=== PATIENT | female | born 1945 | race Caucasian/White ===

== ENCOUNTER 2016-10-12 17:30 | Inpatient (IN) | payer MEDICARE, BC ==
[~2016-10-12] VITALS: Ht 165.1 cm; Wt 41.7 kg
[2016-10-12] MEDS ORDERED: MULT-70 PO (17:53)
[2016-10-12] MEDS ORDERED: ATOR10TA PO (17:53)
--- NOTE | 2016-10-12 18:00 | NUR ---
DR ERICKSON AT [facility] FOR EVAL AND EXAM.
[2016-10-12 18:17] LABS: *BILIRUBIN,URIN NEGATIVE (NEGATIVE); *BLOOD, URINE NEGATIVE (NEGATIVE); *CLARITY,URINE CLEAR (CLEAR); *COLOR,URINE YELLOW (YELLOW); *KETONES,URINE NEGATIVE (NEGATIVE); *PROTEIN,URINE NEGATIVE (NEGATIVE); *UROBILINOGEN,URINE 0.2 E.U./dl (NORMAL); LEUKOCYTE ESTERASE ,URINE NEGATIVE (NEGATIVE); NITRITE, URINE NEGATIVE (NEGATIVE); UGLUCOSE NEGATIVE (NEGATIVE)
[2016-10-12 18:28] LABS: *AMPHETAMINE, URINE NEGATIVE (NEGATIVE); *BARBITURATE, URINE NEGATIVE (NEGATIVE); *CANNABINOID, URINE NEGATIVE (NEGATIVE); *COCCAINE, URINE NEGATIVE (NEGATIVE); *OPIATE, URINE NEGATIVE (NEGATIVE); *PHENCYCLIDINE SCREEN,URINE NEGATIVE (NEGATIVE)
--- NOTE | 2016-10-12 18:36 | NUR ---
[facility] COLLECTED AND SENT TO LAB. BELONGING LIST COMPLETED.
[2016-10-12 18:37] LABS: SQUAMOUS EPITHELIAL CELL,UR FEW /HPF (NONE SEEN); WBC,URINE 0-3 /HPF (0-3)
[2016-10-12 18:38] LABS: ACETAMINOPHEN 2.6 ug/mL (10-30)
[2016-10-12 18:43] LABS: ETHANOL < 3 MG/DL (0-0)
--- NOTE | 2016-10-12 19:33 | NUR ---
Pt. admitted to [facility], under care of Dr. Gutierrez Belongs List completed
[2016-10-12] MEDS ORDERED: LORAZEPAM 0.5 MG TABLET PO PRN (20:30)
[2016-10-12] MEDS ORDERED: ACETAMINOPHEN 325 MG TABLET PO PRN (20:30)
[2016-10-12] MEDS ORDERED: MAGNESIUM HYDROXIDE 30 ML LIQUID UDC PO PRN (20:30)
[2016-10-12] MEDS ORDERED: MAG HYDROX/AL HYDROX/SIMETH 30 ML LIQUID UDC PO PRN (20:30)
[2016-10-12] MEDS: TEMAZEPAM 7.5 MG CAPSULE PO PRN (21:12)
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
[2016-10-13 02:01] VITALS: BP 155/62
[2016-10-13 07:30] VITALS: BP 161/77
[2016-10-13] MEDS: MULTIVITAMINS,THERAPEUTIC TABLET PO SCH (09:44)
[2016-10-13] MEDS: NICOTINE 7 MG/24HR PATCH TD SCH (10:42)
[2016-10-13 11:20] VITALS: BP 152/83
[2016-10-13] MEDS ORDERED: QUETIAPINE FUMARATE 25 MG TABLET PO SCH (15:00)
[2016-10-13 16:00] VITALS: BP 139/69
[2016-10-13] MEDS: QUETIAPINE FUMARATE 25 MG TABLET PO SCH (16:53)
[2016-10-13 20:29] VITALS: BP 126/68
[2016-10-13] MEDS: ATORVASTATIN 10 MG TABLET PO SCH (21:23)
[2016-10-14 07:30] VITALS: BP 164/94
[2016-10-14 07:41] LABS: BASOPHILS % (AUTO) 0.8 % (0.0-2.0); EOSINOPHILS # (AUTO) 0.1 K/uL (0.0-0.7); EOSINOPHILS % (AUTO) 2.3 % (0.0-7.0); HEMATOCRIT 41.9 % (37-47); HEMOGLOBIN 13.5 G/DL (12.0-16.0); LYMPHOCYTES # (AUTO) 1.6 K/UL (0.8-4.8); LYMPHOCYTES % (AUTO) 34.7 % (20.5-51.5); MEAN CORPUSCULAR HEMOGLOBIN 30.8 UUG (27.0-31.0); MEAN CORPUSCULAR HGB CONC 32 g/dL (32.0-37.0); MEAN CORPUSCULAR VOLUME 95.4 FL (81.0-99.0); MONOCYTES # (AUTO) 0.4 K/UL (0.1-1.30); MONOCYTES % (AUTO) 7.8 % (0.0-11.0); NEUTROPHILS # (AUTO) 2.6 K/UL (1.8-8.9); NEUTROPHILS % (AUTO) 54.4 % (38.5-71.5); PLATELET COUNT (AUTO) 180 K/UL (150-450); RED BLOOD CELL COUNT(AUTO) 4.39 MIL/UL (4.2-5.4); WHITE BLOOD COUNT (AUTO) 4.7 K/UL (4.0-11.2)
[2016-10-14 08:16] LABS: THYROID STIMULATING HORMONE 1.179 mIU/mL (0.358-3.740)
[2016-10-14 08:33] LABS: BILIRUBIN,TOTAL 0.4 mg/dL (0.2-1.0); CREATININE 0.6 mg/dL (0.6-1.3); MAGNESIUM 1.6 mg/dL (1.8-2.4); PHOSPHOROUS 3.2 mg/dL (2.5-4.9); POTASSIUM 4.2 mmol/L (3.5-5.1); TOTAL PROTEIN, SERUM 6.1 g/dL (6.4-8.2)
[2016-10-14] MEDS: MULTIVITAMINS,THERAPEUTIC TABLET PO SCH (08:35)
[2016-10-14] MEDS: QUETIAPINE FUMARATE 25 MG TABLET PO SCH ×2 (08:35→17:13)
[2016-10-14] MEDS: NICOTINE 7 MG/24HR PATCH TD SCH (08:39)
[2016-10-14] MEDS ORDERED: Medication Not On Formulary EA (Multivitamins (Multivitamin) 1 EACH) PO SCH (09:00)
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
[2016-10-14 15:54] VITALS: BP 148/72
[2016-10-14 20:11] VITALS: BP 142/71
[2016-10-14] MEDS: ATORVASTATIN 10 MG TABLET PO SCH (21:07)
[2016-10-14] MEDS: MAGNESIUM OXIDE 400 MG TABLET PO SCH (22:15)
[2016-10-15] MEDS ORDERED: MAGNESIUM OXIDE 400 MG TABLET ONE (00:05)
[2016-10-15 07:30] VITALS: BP 129/71
[2016-10-15] MEDS: QUETIAPINE FUMARATE 25 MG TABLET PO SCH ×3 (08:58→17:08)
[2016-10-15] MEDS: METOPROLOL TARTRATE 25 MG TABLET PO SCH ×2 (08:58→21:03)
[2016-10-15] MEDS: NICOTINE 7 MG/24HR PATCH TD SCH (08:59)
[2016-10-15] MEDS: MULTIVITAMINS,THERAPEUTIC TABLET PO SCH (08:59)
[2016-10-15] MEDS ORDERED: MULTIVITAMINS,THERAPEUTIC TABLET PO SCH (09:00)
[2016-10-15 15:40] VITALS: BP 122/66
[2016-10-15 20:18] VITALS: BP 119/62
[2016-10-15] MEDS: MAGNESIUM OXIDE 400 MG TABLET PO SCH (21:01)
[2016-10-15] MEDS: TEMAZEPAM 7.5 MG CAPSULE PO PRN (21:06)
[2016-10-15] MEDS: ATORVASTATIN 10 MG TABLET PO SCH (21:07)
[2016-10-16 07:30] VITALS: BP 143/81
[2016-10-16] MEDS: MULTIVITAMINS,THERAPEUTIC TABLET PO SCH (10:00)
[2016-10-16] MEDS: METOPROLOL TARTRATE 25 MG TABLET PO SCH ×2 (10:01→20:13)
[2016-10-16] MEDS: QUETIAPINE FUMARATE 25 MG TABLET PO SCH ×3 (10:02→17:14)
[2016-10-16] MEDS: NICOTINE 7 MG/24HR PATCH TD SCH (10:02)
[2016-10-16 15:21] VITALS: BP 124/58
[2016-10-16 20:04] VITALS: BP 113/62
[2016-10-16] MEDS: MAGNESIUM OXIDE 400 MG TABLET PO SCH (20:07)
[2016-10-16] MEDS: ATORVASTATIN 10 MG TABLET PO SCH (20:07)
--- NOTE | 2016-10-16 22:54 | NUR ---
PATIENT RECEIVED IN ROOM INTERACTING WITH ROOMMATE. PATIENT ALERT/ORIENTED X 2-3. PATIENT CALM AND COOPERATIVE, PLEASANT UPON APPROACH. PATIENT DENIES SI/VH/AH WILL CONTINUE TO MONITOR AND REDIRECT NEEDED. PATIENT COMPLAINT WITH HS MEDICATION, HOWEVER REFUSED METOPTOLOL 25 MG " WHAT IS MY BLOOD PRESSURE IT'S GOOD I WILL NOT TAKE IT IF IT WAS REALLY HIGH I WILL TAKE IT." PATIENT DENIES PAIN AT THIS TIME, WILL CONTINUE TO MONITOR, PATIENT ABLE TO MAKE NEEDS KNOWN. BED IN LOWEST POSITION, BED LOCKED, AND BED ALARM ON WHILE IN BED.
[2016-10-17 07:30] VITALS: BP 136/68
[2016-10-17] MEDS: METOPROLOL TARTRATE 25 MG TABLET PO SCH ×2 (09:19→20:22)
[2016-10-17] MEDS: MULTIVITAMINS,THERAPEUTIC TABLET PO SCH (09:20)
[2016-10-17] MEDS: QUETIAPINE FUMARATE 25 MG TABLET PO SCH ×3 (09:20→17:45)
[2016-10-17] MEDS: NICOTINE 7 MG/24HR PATCH TD SCH (09:21)
[2016-10-17 15:49] VITALS: BP 124/60
[2016-10-17] MEDS: ATORVASTATIN 10 MG TABLET PO SCH (20:22)
[2016-10-17] MEDS: MAGNESIUM OXIDE 400 MG TABLET PO SCH (20:22)
[2016-10-17 21:28] VITALS: BP 141/63
--- NOTE | 2016-10-17 21:30 | NUR ---
PATIENT RECEIVED IN ROOM INTERACTING WITH ROOMMATE. PATIENT ALERT/ORIENTED X 2-3. PATIENT ISOLATIVE TO ROOM, PATIENT CALM AND COOPERATIVE, PLEASANT UPON APPROACH. PATIENT DENIES SI/VH/AH WILL CONTINUE TO MONITOR AND REDIRECT NEEDED. PATIENT COMPLAINT WITH HS MEDICATION. PATIENT DENIES PAIN AT THIS TIME, WILL CONTINUE TO MONITOR, PATIENT ABLE TO MAKE NEEDS KNOWN. BED IN LOWEST POSITION, BED LOCKED, AND BED ALARM ON WHILE IN BED.
[2016-10-18 07:30] VITALS: BP 121/55
[2016-10-18 08:49] VITALS: BP 122/55
[2016-10-18] MEDS: METOPROLOL TARTRATE 25 MG TABLET PO SCH (08:49)
[2016-10-18] MEDS: NICOTINE 7 MG/24HR PATCH TD SCH (08:50)
[2016-10-18] MEDS: QUETIAPINE FUMARATE 25 MG TABLET PO SCH (08:50)
[2016-10-18] MEDS: MULTIVITAMINS,THERAPEUTIC TABLET PO SCH (08:50)
--- NOTE | 2016-10-18 10:01 | NUR ---
DC Note: Patient will be discharged to [facility] [[address] [place] [address]; [phone]] via ambulance at 12:00 pm. Please schedule an ambulance for the patient. Spoke with VENKATESH at the facility who stated he would accept the patient today. INKKI called patient's , Graham Hardy [phone] and left a voicemail with discharge plans. Patient will follow-up with (Child And Adolescent Therapist) and (Psychiatrist) at the facility. For smoking cessation, patient was referred to [employer] [id number] and [employer] [phone]. Addendum: 10/18/16 at 1051 by REGINO JORDAN Patient's returned phone call, and stated he is aware and agreeable with discharge plans.
--- NOTE | 2016-10-18 13:00 | NUR ---
REPORT CALLED TO [facility]. PT. DISCHARGED TO AMBULANCE FOR TRANSPORT TO SNF.
== END 2016-10-18 13:00 | DRG 885 ==
LOC: ER 17:36 → GPS 19:26
PROVIDERS: ADMIT Psychiatry & Neurology Psychiatry; ATTEND Psychiatry & Neurology Psychiatry
DX: F29 Unspecified psychosis not due to a substance or known physiological condition (principal); E43 Unspecified severe protein-calorie malnutrition; F03.91 Unspecified dementia, unspecified severity, with behavioral disturbance; E78.00 Pure hypercholesterolemia, unspecified; F41.9 Anxiety disorder, unspecified; E78.5 Hyperlipidemia, unspecified; F22 Delusional disorders; R62.7 Adult failure to thrive; Z88.1 Allergy status to other antibiotic agents; Z88.8 Allergy status to other drugs, medicaments and biological substances; E03.9 Hypothyroidism, unspecified; F32.9 Major depressive disorder, single episode, unspecified; I10 Essential (primary) hypertension; Z87.891 Personal history of nicotine dependence; F10.10 Alcohol abuse, uncomplicated; Y90.0 Blood alcohol level of less than 20 mg/100 ml
CPT/HCPCS: 36415; 71010; 80307; 82306; 83735; 84100; 84443; 85025; 93005; A4663; A9150; G0480-TC; G6040-TC

== ENCOUNTER 2016-10-31 12:34 | Emergency (ER) | payer MEDICARE, BC ==
[~2016-10-31] VITALS: Ht 172.7 cm; Wt 49.9 kg
[~2016-10-31 12:34] MED LIST: ATOR10TA PO; MULT-70 PO
--- NOTE | 2016-10-31 12:34 | NUR ---
Patient is alert, awake, shouting angrily and intermittently, redirectable at times. Security assistance and nursing supervisory it specialist were called.
[2016-10-31] MEDS ORDERED: LORAZEPAM 2 MG/1 ML VIAL IM ONE (12:45)
[2016-10-31] MEDS ORDERED: HALOPERIDOL LACTATE 5 MG/1 ML VIAL IM ONE (12:45)
--- NOTE | 2016-10-31 12:54 | NUR ---
Pt [facility] to [facility] [place] [facility] [place] on a 5150 hold. Per Niki WASHINGTONW [facility] medically clear, Dr Brenda harmon md, for report. Pt arrived with no information about current medications, unable to reconcile meds.
[2016-10-31] MEDS ORDERED: HALOPERIDOL LACTATE 5 MG/1 ML VIAL ONE (12:59)
[2016-10-31] MEDS ORDERED: LORAZEPAM 2 MG/1 ML VIAL ONE (13:00)
[2016-10-31 13:16] LABS: BASOPHILS % (AUTO) 0.6 % (0.0-2.0); EOSINOPHILS % (AUTO) 0.7 % (0.0-7.0); HEMATOCRIT 36.1 % (37-47); HEMOGLOBIN 12.4 G/DL (12.0-16.0); LYMPHOCYTES # (AUTO) 1.4 K/UL (0.8-4.8); MEAN CORPUSCULAR HGB CONC 34 g/dL (32.0-37.0); MEAN CORPUSCULAR VOLUME 93.2 FL (81.0-99.0); MONOCYTES # (AUTO) 0.4 K/UL (0.1-1.30); MONOCYTES % (AUTO) 5.3 % (0.0-11.0); NEUTROPHILS # (AUTO) 5.1 K/UL (1.8-8.9); NEUTROPHILS % (AUTO) 73.4 % (38.5-71.5); PLATELET COUNT (AUTO) 197 K/UL (150-450); RED BLOOD CELL COUNT(AUTO) 3.87 MIL/UL (4.2-5.4); WHITE BLOOD COUNT (AUTO) 6.9 K/UL (4.0-11.2)
[2016-10-31 13:28] LABS: *BILIRUBIN,URIN NEGATIVE (NEGATIVE); *BLOOD, URINE NEGATIVE (NEGATIVE); *CLARITY,URINE CLEAR (CLEAR); *COLOR,URINE YELLOW (YELLOW); *KETONES,URINE NEGATIVE (NEGATIVE); *PROTEIN,URINE 2+ (NEGATIVE); *UROBILINOGEN,URINE 0.2 E.U./dl (NORMAL); LEUKOCYTE ESTERASE ,URINE 1+ (NEGATIVE); NITRITE, URINE NEGATIVE (NEGATIVE); UGLUCOSE NEGATIVE (NEGATIVE)
[2016-10-31 13:42] LABS: BACTERIA,URINE MODERATE /HPF (NONE SEEN); RBC,URINE 0-3 /HPF (0-3); SQUAMOUS EPITHELIAL CELL,UR MANY /HPF (NONE SEEN)
[2016-10-31 13:50] LABS: ALANINE AMINOTRANSFERASE 50 U/L (14-59); ALKALINE PHOSPHATASE 79 U/L (50-136); ASPARTATE AMINOTRANSFERASE 29 U/L (15-37); BILIRUBIN,TOTAL 0.4 mg/dL (0.2-1.0); CARBON DIOXIDE 30 mmol/L (21-32); CHLORIDE 100 mmol/L (98-107); GLUCOSE 97 mg/dL (74-106); TOTAL PROTEIN, SERUM 6.4 g/dL (6.4-8.2); UREA NITROGEN, BLOOD 16 mg/dL (7-18)
--- NOTE | 2016-10-31 13:57 | NUR ---
Patient is eating lunch with good appetite, still for medical clearance
[2016-10-31 13:59] LABS: *AMPHETAMINE, URINE NEGATIVE (NEGATIVE); *BARBITURATE, URINE NEGATIVE (NEGATIVE); *CANNABINOID, URINE NEGATIVE (NEGATIVE); *COCCAINE, URINE NEGATIVE (NEGATIVE); *OPIATE, URINE NEGATIVE (NEGATIVE); *PHENCYCLIDINE SCREEN,URINE NEGATIVE (NEGATIVE)
[2016-10-31] MEDS ORDERED: LEVOFLOXACIN 500 MG TABLET PO ONE (14:00)
--- NOTE | 2016-10-31 14:05 | NUR ---
Medically cleared by Dr Raymond.
[2016-10-31 14:06] LABS: ETHANOL < 3 MG/DL (0-0)
--- NOTE | 2016-10-31 14:09 | NUR ---
MITALI OFFICER DEVI CALLED WITH PT's INFORMATION - PHONE NUMBER :[phone]. PT's WAS CALLED BY NET SOFTWARE ENGINEER.
[2016-10-31] MEDS ORDERED: LEVOFLOXACIN 500 MG TABLET ONE (14:10)
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
== END 2016-10-31 15:08 | disposition short-term general hospital (02) ==
LOC: ER 12:39
DX: F03.91 Unspecified dementia, unspecified severity, with behavioral disturbance (principal); F41.9 Anxiety disorder, unspecified; E78.00 Pure hypercholesterolemia, unspecified; J44.9 Chronic obstructive pulmonary disease, unspecified; Z88.1 Allergy status to other antibiotic agents; Z88.8 Allergy status to other drugs, medicaments and biological substances
CPT/HCPCS: 36415; 71010; 80307; 85025; 93005; A4663; G0480; J1630; J2060